=== PATIENT | male | born 1980 | race African-American/Black ===

== ENCOUNTER 2017-06-22 07:33 | Inpatient (IN) | payer MEDICAID ==
[2017-06-22] VITALS (13 sets, daily range): BP systolic 133–165; BP diastolic 65–146; PULSE 90–102; RESP 18–33; TEMP 97.9–98.6; O2SAT 93–98
[~2017-06-22] VITALS: Ht 180.3 cm; Wt 111.1 kg
[~2017-06-22 07:33] MED LIST: ALBU.5I NEB; ALBU6.7H INH; ASPI81TA23 PO; CARV3.125 PO; DOXY100C PO; FURO40TA PO; HYDR12.57 PO; LEVA500T33 PO; LISI40TA PO; NITR.3 SL; PRED50 PO
[2017-06-22] MEDS ORDERED: MAGNESIUM HYDROXIDE SUSP 30 ML CUP PO PRN (10:30)
[2017-06-22] MEDS ORDERED: ONDANSETRON HCL 4 MG/2 ML VIAL IVP PRN (10:30)
[2017-06-22] MEDS ORDERED: SODIUM CHLORIDE 0.9% FLUSH 10 ML FLUSH IV FLUSH PRN (10:30)
[2017-06-22] MEDS ORDERED: ENALAPRILAT 1.25 MG/ML VIAL IV PUSH PRN (10:30)
[2017-06-22] MEDS ORDERED: NALOXONE HCL 0.4 MG/ML AMP IV PUSH PRN (10:30)
[2017-06-22] MEDS ORDERED: cloNIDine HCL 0.1 MG TAB PO PRN (10:30)
[2017-06-22] MEDS ORDERED: ENOXAPARIN SODIUM 40 MG/0.4 ML SYRINGE SQ SCH (12:00)
[2017-06-22] MEDS ORDERED: POTASSIUM CHLORIDE 10 MEQ CONTROLLED RELEASE TAB PO ONE (13:00)
--- NOTE | 2017-06-22 15:38 | HHI.HP ---
[facility] Service [facility] Primary Care Physician Sumit Camarena MD Admission Diagnosis Diagnoses: Travel History International Travel<30 Days: No Contact w/Intl Traveler <30 Da: No Traveled to Known Affected Are: No History of Present Illness Mr. Mehta is a 36-year-old male. He is in the hospital secondary to respiratory distress. He's had an acute onset of respiratory distress. She had only missed 1 dose of his diuretic. Findings on blood work showed that he is in CHF exacerbation. This likely represents flash pulmonary edema setting of CHF exacerbation. Patient also had hypertensive urgency and this would've been contributory. He was put in the ICU with a nitroglycerin drip. Blood pressures have improved through time. He is complaining of headache. No nausea or vomiting. Respiratory distress is improved. No chest pain. Diuresis is ongoing. Review of Systems Constitutional: DENIES: Fatigue, Fever, Chills Eyes: DENIES: Blurred vision, Diplopia, Eye inflammation Ears, nose, mouth, throat: DENIES: Tinnitus, Hearing loss, Vertigo, Nasal discharge Respiratory: COMPLAINS OF: Shortness of breath, DENIES: Cough, Wheezing Cardiovascular: COMPLAINS OF: Dyspnea on Exertion, DENIES: Chest pain, Palpitations, Syncope Gastrointestinal: DENIES: Abdominal pain, Black stools, Bloody stools, Constipation Musculoskeletal: DENIES: Joint pain, Muscle aches, Stiffness, Joint Swelling Integumentary: DENIES: Abnormal pigmentation, Nail changes, Pruritus, Rash Hematologic/lymphatic: DENIES: Bruising, Lymphadenopathy Immunologic/allergic: DENIES: Eczema, Urticaria Neurologic: DENIES: Abnormal gait, Headache, Paresthesias Psychiatric: DENIES: Anxiety, Confusion, Hallucinations Past Family Social History Past Medical History CHF Cardiomyopathy TIA Past Surgical History None Reported Medications Reported Meds & Active Scripts Active Proventil Hfa 6.7 GM Inh (Albuterol Sulfate) 90 Mcg/Act Aer 2 Puff INH Q4-6H PRN Reported Albuterol Neb (Albuterol Sulfate) 2.5 Mg/0.5 Ml Neb 2.5 Mg NEB Q4HR NEB PRN Note: The Albuterol Sulfate Inhalation Solution is concentrated and must be diluted. Read complete instructions carefully before using. Lisinopril 40 Mg Tab 40 Mg PO DAILY Nitrostat SL (Nitroglycerin) 0.3 Mg Subl 0.3 Mg SL DIRECTED PRN ONE TABLET UNDER THE TONGUE NEEDED FOR CHEST PAIN, MAY REPEAT EVERY FIVE MINUTES FOR A TOTAL OF 3 DOSES OR CALL 911 IF NO RELIEF Hydrochlorothiazide 12.5 Mg Cap 12.5 Mg PO DAILY Furosemide 40 Mg Tab 40 Mg PO BID Coreg (Carvedilol) 3.125 Mg Tab 3.125 Mg PO BID Aspirin EC (Aspirin) 81 Mg Tabdr 81 Mg PO DAILY Allergies: Coded Allergies: pork derived (porcine) (Verified Allergy, Unknown, Swelling, 06/22/17) Active Ordered Medications Administered Medications Medications (Trade) Dose Ordered Sig/Rehan Route PRN Reason Start Time Stop Time Status Last Admin Dose Admin Enoxaparin Sodium (Lovenox Inj) 40 mg Q24H SQ 06/22/17 12:00 06/22/17 12:00 Family History Hypertension in mother Social History Occasional marijuana use Patient smokes one half pack per day No alcohol abuse No illicit drug abuse Physical Exam Vital Signs Vital Signs Date Time Temp Pulse Resp B/P (MAP) Pulse Ox O2 Delivery O2 Flow Rate FiO2 06/22/17 13:30 98 22 164/83 (110) 94 Physical Exam GENERAL: NAD, A&Ox3 HEAD: Normocephalic. NECK: Supple, trachea midline. No lymphadenopathy. EYES: No scleral icterus. No injection or drainage. CARDIOVASCULAR: Regular rate and rhythm without murmurs, gallops, or rubs. RESPIRATORY: Breath sounds equal bilaterally. No accessory muscle use. GASTROINTESTINAL: Abdomen soft, non-tender, nondistended. MUSCULOSKELETAL: No cyanosis, or edema. SKIN: Warm and dry. NEURO: No focal neurological deficitis. Laboratory Laboratory Tests Test 06/22/17 11:45 Potassium Level 3.2 Result Diagram: 06/22/17 1145 Caprini VTE Risk Assessment Caprini VTE Risk Assessment: No/Low Risk (score <= 1) Caprini Risk Assessment Model Point Value = 1 Point Value = 2 Point Value = 3 Point Value = 5 Age 41-60 Minor surgery BMI > 25 kg/m2 Swollen legs Varicose veins or History of unexplained or recurrent spontaneous Oral contraceptives or hormone replacement Sepsis (< 1 month) Serious lung disease, including pneumonia (< 1 month) Abnormal pulmonary function Acute myocardial infarction Congestive heart failure (< 1 month) History of inflammatory bowel disease Medical patient at bed rest Age 61-74 Arthroscopic surgery Major open surgery (> 45 min) Laparoscopic surgery (> 45 min) Malignancy Confined to bed (> 72 hours) Immobilizing plaster cast Central venous access Age >= 75 History of VTE Family history of VTE Factor V Leiden Prothrombin [id number] Lupus anticoagulant Anticardiolipin antibodies Elevated serum homocysteine Heparin-induced thrombocytopenia Other congenital or acquired thrombophilia Stroke (< 1 month) Elective arthroplasty Hip, pelvis, or leg fracture Acute spinal cord injury (< 1 month) Prophylaxis Regimen Total Risk Factor Score Risk Level Prophylaxis Regimen 0-1 Low Early ambulation 2 Moderate Order ONE of the following: *Sequential Compression Device (SCD) *Heparin 5000 units SQ BID 3-4 Higher Order ONE of the following medications: *Heparin 5000 units SQ TID *Enoxaparin/Lovenox 40 mg SQ daily (WT < 150 kg, CrCl > 30 mL/min) *Enoxaparin/Lovenox 30 mg SQ daily (WT < 150 kg, CrCl > 10-29 mL/min) *Enoxaparin/Lovenox 30 mg SQ BID (WT < 150 kg, CrCl > 30 mL/min) AND/OR *Sequential Compression Device (SCD) 5 or more Highest Order ONE of the following medications: *Heparin 5000 units SQ TID (Preferred with Epidurals) *Enoxaparin/Lovenox 40 mg SQ daily (WT < 150 kg, CrCl > 30 mL/min) *Enoxaparin/Lovenox 30 mg SQ daily (WT < 150 kg, CrCl > 10-29 mL/min) *Enoxaparin/Lovenox 30 mg SQ BID (WT < 150 kg, CrCl > 30 mL/min) AND *Sequential Compression Device (SCD) Assessment and Plan Problem List: (1) Flash pulmonary edema ICD Code: J81.0 - Acute pulmonary edema (2) CHF exacerbation ICD Code: I50.9 - Heart failure, unspecified (3) Systolic and diastolic CHF, chronic ICD Code: I50.42 - Chronic combined systolic (congestive) and diastolic ( congestive) heart failure (4) Systolic and diastolic CHF, acute on chronic ICD Code: I50.43 - Acute on chronic combined systolic (congestive) and diastolic (congestive) heart failure Assessment and Plan 36-year-old male admitted secondary to acute respiratory distress from flash pulmonary edema related to CHF exacerbation Flash pulmonary edema Resolved Continue diuretic treatments to resolve CHF exacerbation Hypertensive urgency Hypertension Wean nitroglycerin drip as tolerated Continue as needed IV enalapril Continue as needed Cardizem by mouth Resume home blood pressure treatments CHF exacerbation, acute on chronic Cardiomyopathy Systolic CHF Diastolic CHF Continue diuresis Follow for fluid balance Monitor electrolytes Monitor renal function Continue baseline treatments DVT prophylaxis SCDs Physician Certification 2 Midnight Certification Type: Admission for Inpatient Services Order for Inpatient Services The services are ordered in accordance with Medicare regulations or non- Medicare payer requirements, as applicable. In the case of services not specified as inpatient-only, they are appropriately provided as inpatient services in accordance with the 2-midnight benchmark. Estimated LOS (days): 2 days is the estimated time the patient will need to remain in the hospital, assuming treatment plan goals are met and no additional complications. Post-Hospital Plan: Home Darwin Howard MD Jun 22, 2017 15:38
[2017-06-22] MEDS ORDERED: FUROSEMIDE 40 MG/4 ML VIAL IV PUSH ONE (15:45)
[2017-06-22] MEDS ORDERED: RESP: ALBUTEROL 2.5 MG/3 ML NEB (PRN) NEB (15:45)
[2017-06-22] MEDS ORDERED: NITROGLYCERIN 0.4 MG SL 25 TABS/BTL SL PRN (16:00)
[2017-06-22] MEDS: CARVEDILOL 3.125 MG TAB PO SCH (20:33)
[2017-06-22] MEDS: SODIUM CHLORIDE 0.9% FLUSH 10 ML FLUSH IV FLUSH SCH (20:34)
[2017-06-23] VITALS: BP 160/90; PULSE 82; RESP 20; TEMP 98.3; O2SAT 92
[2017-06-23 04:00] VITALS: BP 143/90; PULSE 80; RESP 25; TEMP 98; O2SAT 96
[2017-06-23 06:23] LABS: AUTOMATED NEUTROPHIL # 9.4 TH/MM3 (1.8-7.7); BASOPHIL # 0.1 TH/MM3 (0-0.2); BASOPHIL % 1.1 % (0.0-2.0); EOSINOPHIL % 0.2 % (0.0-4.0); HEMATOCRIT 40.2 % (39.0-51.0); HEMOGLOBIN 13.3 GM/DL (13.0-17.0); LYMPH % 8.3 % (9.0-44.0); LYMPHOCYTE # 0.9 TH/MM3 (1.0-4.8); MEAN CELL VOLUME 80.1 FL (80.0-100.0); MEAN CORPUSCULAR HEMOGLOBIN 26.5 PG (27.0-34.0); MEAN CORPUSCULAR HGB CONC 33.1 % (32.0-36.0); MEAN PLATELET VOLUME 7.7 FL (7.0-11.0); MONO % 6.4 % (0.0-8.0); MONOCYTE # 0.7 TH/MM3 (0-0.9); PLATELET COUNT 221 TH/MM3 (150-450); RED BLOOD COUNT 5.02 MIL/MM3 (4.50-5.90); RED CELL DISTRIBUTION WIDTH 16.2 % (11.6-17.2); WHITE BLOOD COUNT 11.1 TH/MM3 (4.0-11.0)
[2017-06-23 06:44] LABS: CHLORIDE 103 MEQ/L (98-107); SODIUM (NA) 138 MEQ/L (136-145)
[2017-06-23 06:51] LABS: ALBUMIN 3.3 GM/DL (3.4-5.0); BICARBONATE 28.5 MEQ/L (21.0-32.0); BLOOD UREA NITROGEN 25 MG/DL (7-18); GLUCOSE,RANDOM 115 MG/DL (74-106)
[2017-06-23 06:54] LABS: ALT (GPT) 36 U/L (12-78); AST (GOT) 20 U/L (15-37)
[2017-06-23 06:55] LABS: GLOMERULAR FILTRATION RATE 55 ML/MIN (>89)
[2017-06-23 06:56] LABS: TOTAL BILIRUBIN ADULT 0.6 MG/DL (0.2-1.0); TOTAL PROTEIN 7.3 GM/DL (6.4-8.2)
[2017-06-23 06:57] LABS: ALKALINE PHOSPHATASE 67 U/L (45-117)
[2017-06-23 07:00] VITALS: PULSE 80
[2017-06-23 08:00] VITALS: BP 156/108; PULSE 82; PULSE 92; RESP 12; TEMP 97.6; O2SAT 95
[2017-06-23] MEDS ORDERED: FUROSEMIDE 40 MG/4 ML VIAL IV PUSH SCH (08:00)
[2017-06-23 09:00] VITALS: PULSE 82
[2017-06-23] MEDS ORDERED: HYDROCHLOROTHIAZIDE 12.5 MG CAP PO SCH (09:00)
[2017-06-23] MEDS ORDERED: POTASSIUM CHLORIDE 10 MEQ CONTROLLED RELEASE TAB PO ONE (09:00)
[2017-06-23] MEDS ORDERED: ASPIRIN EC 81 MG TABEC PO SCH (09:00)
[2017-06-23] MEDS: SODIUM CHLORIDE 0.9% FLUSH 10 ML FLUSH IV FLUSH SCH (09:07)
[2017-06-23] MEDS: CARVEDILOL 3.125 MG TAB PO SCH (09:08)
[2017-06-23] MEDS ORDERED: FURO1TAB60 PO (09:55)
--- NOTE | 2017-06-23 09:57 | HHI.DS ---
Discharge Summary Admission Date Jun 22, 2017 at 10:31 Discharge Date: Jun 23, 2017 Admitting Diagnosis (1) Flash pulmonary edema ICD Code: J81.0 - Acute pulmonary edema Diagnosis: Principal (2) CHF exacerbation ICD Code: I50.9 - Heart failure, unspecified Diagnosis: Principal (3) Systolic and diastolic CHF, chronic ICD Code: I50.42 - Chronic combined systolic (congestive) and diastolic ( congestive) heart failure Diagnosis: Principal (4) Systolic and diastolic CHF, acute on chronic ICD Code: I50.43 - Acute on chronic combined systolic (congestive) and diastolic (congestive) heart failure Diagnosis: Principal Procedures None Brief History - From Admission Mr. Mehta is a 36-year-old male. He is in the hospital secondary to respiratory distress. He's had an acute onset of respiratory distress. She had only missed 1 dose of his diuretic. Findings on blood work showed that he is in CHF exacerbation. This likely represents flash pulmonary edema setting of CHF exacerbation. Patient also had hypertensive urgency and this would've been contributory. He was put in the ICU with a nitroglycerin drip. Blood pressures have improved through time. He is complaining of headache. No nausea or vomiting. Respiratory distress is improved. No chest pain. Diuresis is ongoing. CBC/BMP: 06/23/17 0610 06/23/17 0610 Significant Findings Laboratory Tests Test 06/22/17 11:45 06/23/17 06:10 Potassium Level 3.2 MEQ/L (3.5-5.1) 3.4 MEQ/L (3.5-5.1) White Blood Count 11.1 TH/MM3 (4.0-11.0) Mean Corpuscular Hemoglobin 26.5 PG (27.0-34.0) Neutrophils (%) (Auto) 84.0 % (16.0-70.0) Lymphocytes (%) (Auto) 8.3 % (9.0-44.0) Neutrophils # (Auto) 9.4 TH/MM3 (1.8-7.7) Lymphocytes # (Auto) 0.9 TH/MM3 (1.0-4.8) Blood Urea Nitrogen 25 MG/DL (7-18) Creatinine 1.70 MG/DL (0.60-1.30) Random Glucose 115 MG/DL (74-106) Albumin 3.3 GM/DL (3.4-5.0) Calcium Level 8.0 MG/DL (8.5-10.1) Estimat Glomerular Filtration Rate 55 ML/MIN (>89) Hospital Course Mr. Mehta is a 36-year-old male. He has cardiomyopathy at baseline. Congestive heart failure as part of his cardiomyopathy. He came in secondary to flash pulmonary edema and CHF exacerbation. BNP was elevated. Diuresis was provided while here. He had resolution of his respiratory symptoms. He also has returned to a stable fluid balance. Recovery was quicker than expected, but today patient is medically stable and cleared for discharge to home. Pt Condition on Discharge: Stable Discharge Disposition: Discharge Home Discharge Time: <= 30 minutes Discharge Instructions DIET: Follow Instructions for: Heart Healthy Diet Activities you can perform: Regular-No Restrictions Follow up Referrals: Cardiology - 2 Weeks PCP Follow-up - 2 Weeks New Medications: Furosemide (Lasix) 40 Mg Tab 40 MG PO DAILY PRN for Increased Weight or Breathing, #30 TAB 0 Refills Continued Medications: Albuterol 6.7 GM Inh (Proventil Hfa 6.7 GM Inh) 90 Mcg/Act Aer 2 PUFF INH Q4-6H PRN for SHORTNESS OF BREATH, #1 INHALER 0 Refills Albuterol Neb (Albuterol Neb) 2.5 Mg/0.5 Ml Neb 2.5 MG NEB Q4HR NEB PRN for SOB/WHEEZING, EA Note: The Albuterol Sulfate Inhalation Solution is concentrated and must be diluted. Read complete instructions carefully before using. Aspirin DR (Aspirin EC) 81 Mg Tabdr 81 MG PO DAILY, TAB 0 Refills Carvedilol (Coreg) 3.125 Mg Tab 3.125 MG PO BID, #60 TAB 0 Refills Furosemide (Furosemide) 40 Mg Tab 40 MG PO BID, #60 TAB 0 Refills Hydrochlorothiazide (Hydrochlorothiazide) 12.5 Mg Cap 12.5 MG PO DAILY, #30 CAP 0 Refills Lisinopril (Lisinopril) 40 Mg Tab 40 MG PO DAILY for Blood Pressure Management, #30 TAB 0 Refills Nitroglycerin SL (Nitrostat SL) 0.3 Mg Subl 0.3 MG SL DIRECTED PRN for CHEST PAIN, #100 TAB.SL 0 Refills ONE TABLET UNDER THE TONGUE NEEDED FOR CHEST PAIN, MAY REPEAT EVERY FIVE MINUTES FOR A TOTAL OF 3 DOSES OR CALL 911 IF NO RELIEF Darwin Howard MD Jun 23, 2017 09:57
[2017-06-23 10:00] VITALS: PULSE 88
[2017-06-23] MEDS ORDERED: LISINOPRIL 20 MG TAB PO SCH (16:00)
== END 2017-06-23 13:03 | disposition home or self-care (01) | DRG 293 ==
LOC: PHEDDLT 07:33 → PHICU 07:43 → OBSVTOIN 10:31
PROVIDERS: ADMIT Hospitalist; ATTEND Hospitalist
DX: I11.0 Hypertensive heart disease with heart failure (principal); I42.9 Cardiomyopathy, unspecified; I50.43 Acute on chronic combined systolic (congestive) and diastolic (congestive) heart failure; R06.03 Acute respiratory distress; I16.0 Hypertensive urgency; R51 Headache; F12.90 Cannabis use, unspecified, uncomplicated; F17.210 Nicotine dependence, cigarettes, uncomplicated; Z86.73 Personal history of transient ischemic attack (TIA), and cerebral infarction without residual deficits
CPT/HCPCS: 71046; 80048; 80053; 82550; 82552; 83880; 84132; 84484; 85025; 93005; 94640; 94664; 96374; 96375; J0360; J1650; J1940; J2060; J2405; J2930; J3480